=== PATIENT | male | born 1960 | race Caucasian/White ===

== ENCOUNTER 2020-01-30 09:18 | Inpatient (IN) ==
--- NOTE | 2020-01-04 13:54 | PAT Medication Instructions ---
Medication Instructions Date of Service January 04, 2020 Home Medications acetaminophen 1,500 mg PO 1200 fish oil-dha-epa 1 cap PO QAM ibuprofen 600 mg PO QAM ASK your surgeon for instructions ibuprofen 600 mg PO QAM STOP taking 2 weeks before surgery If surgery is within 2 weeks, stop taking as soon as possible. fish oil-dha-epa 1 cap PO QAM DO NOT take the morning of surgery acetaminophen 1,500 mg PO 1200 Other Notes If you have any questions please call us at [phone] or [phone] or [phone] or [phone]
--- OUTSIDE RECORDS SUMMARY | 2020-01-04 13:59 | External Medical Summary | Continuity of Care Document ---
:1960 Author Name Angelo Merritt Address Unavailable Unavailable , Care Team Providers Name Role Phone Non[facility] MJosé Antonio Unavailable [email or web address] NICHOLE Merritt, A Unavailable Unavailable Unavailable Unavailable Unavailable Problems Injury of foot, left (959.7) (S99.922A) Acute low back pain (724.2) (M54.5) Tick bite (919.4) (W57.XXXA) Sciatica, left side (724.3) (M54.32) Left lumbar radiculopathy (724.4) (M54.16) Foreign body on external eye, part unspe cified, unspecified eye, initial encounter (930.9) (T15.90XA) Allergies and Adverse Reactions No Known Drug Allergies (Allergy) Medications Medications not documented Procedures Procedures not documented Immunizations Immunizations not documented Family History Mother Family history of diabetes mellitus (V18.0) (Z83.3) Status: Active Social History - Smoking Status Never smoked tobacco Plan of Treatment Planned Observations Planned Goals not documented Results No Known Results Results not documented
--- NOTE | 2020-01-04 14:23 | Anesthesiology Consultation ---
Date of Service January 04, 2020 Assessment & Plan (1) Encounter for pre-operative examination: COVID Status: As of 01/03 assessment, patient denies travel to endemic area, known exposure/sick contacts, or symptoms of COVID19. Patient instructed that they and their household members must follow strict social distancing guidelines, wear a mask in public and avoid travel for 14 days prior to surgery. Preoperative COVID19 testing to be completed prior to surgery per surgeon's arr angements. Patient made aware to self-isolate as much as possible between COVID testing and surgery. Chart Review Chart Review: Acceptable Risk for Surgery and Patient seen in Pre Admission Testing Teaching & Discussion Instructed NPO after midnight before surgery, except medications with 15 cc of water. Medication instructions provided according to the PAT guidelines. History Surgery Operation Date: 01/30/20 13:55 Proposed Procedures p Left Total Knee Arthroplasty - Donnie Barajas MD Height/Weight Height: 5 ft 11 in Weight: 121.6 kg Allergies Allergy/AdvReac Type Severity Reaction Status Date / Time No Known Allergies Allergy Verified 01/03/20 16:10 Medications Home Medications Medication Instructions Recorded Confirmed Last Taken acetaminophen 1,500 mg PO 1200 01/03/20 01/03/20 Unknown fish oil-dha-epa 1 cap PO QAM 01/03/20 01/03/20 Unknown ibuprofen 600 mg PO QAM 01/03/20 01/03/20 Unknown Past Medical History Medical History Habitual snoring has not ever had a sleep study test done, no cpap Obesity Osteoarthritis Exercise / Class Metabolic Activity II 4-5 Yardwork/Stairs/Walk up hill (Can do stairs but slowly, limited by knee pain, denies chest pain but some SOB feels 2/2 knee pain) Past Family History Family History (Updated 01/03/20 @ 16:18 by Antonia King RN) Mother Family history of diabetes mellitus Other No family history of adverse response to anesthesia Past Surgical History Surgical History History of tonsillectomy History of tooth extraction under local Hx of vasectomy Past Anesthesia History No Hx of Anesthesia Complications and No Family Hx of Anesthesia Complications History of PONV No Hx of PONV and No Hx of Motion Sickness Social History Smoking Status: Never smoker tobacco type: smokeless tobacco Do You Dip or Chew Tobacco: Yes (1 can every 2 days) Hx Alcohol Use: Yes Alcohol type: beer alcohol intake frequency: a few times a week Hx Substance Use: No substance use type: does not use Review of Systems Pt denies any recent chest pain, shortness of breath, palpitations, cough, fever, URI, or uncontrolled acid reflux. Physical Exam Vital Signs BP: 137/78bpm P: 85bpm SPO2: 97% RA T: 98.2 F R: 16 Constitutional + obese ENMT Mouth: + poor dentition and + chipped teeth (many molars broken off at the root); no dental restorations and no loose teeth Thyromental Distance: > or= 3.5 Finger Breadths Mallampati Class: I Neck normal visual inspection; neck extension not limited Respiratory normal respiratory effort Auscultation: lungs clear to auscultation bilaterally Cardiovascular Rate/Rhythm: regular rate and regular rhythm Heart Sounds: no murmur Extremities: no edema Testing Laboratory Results 01/04/20 14:35 01/04/20 14:50 PT 10.3 Seconds (9.0-12.0) 01/04/20 14:35 INR 1.0 (0.9-1.1) 01/04/20 14:35 APTT 26.3 Seconds (21.0-31.0) 01/04/20 14:35 Hemoglobin A1c 5.4 % (4.5-5.6) 01/04/20 14:35 Urine Color Yellow 01/04/20 14:35 Urine Appearance Clear (Clear) 01/04/20 14:35 Urine pH 7.0 (4.5-7.5) 01/04/20 14:35 Ur Specific [place] 1.018 (1.000-1.030) 01/04/20 14:35 Urine Protein Negative (Negative) 01/04/20 14:35 Urine Glucose (UA) Negative (Negative) 01/04/20 14:35 Urine Ketones Negative (Negative) 01/04/20 14:35 Urine Nitrite Negative (Negative) 01/04/20 14:35 Ur Leukocyte Esterase Negative (Negative) 01/04/20 14:35 Blood Type AB Positive 01/04/20 14:35 Antibody Screen NEGATIVE 01/04/20 14:35 Electrocardiogram Date: 01/04/20 Findings: + NSR @ (79bpm) Chest X-Ray Date: 01/04/20 Findings: + NAD
--- NOTE | 2020-01-04 15:31 | XRay Report ---
XR chest Pre-admission PA/Lat HISTORY: Preop. COMPARISON: None. FINDINGS: The lungs are clear. Cardiac silhouette is normal in size. No pleural effusions. No pneumot horax. Symmetric nodular densities within the lung bases likely represent nipple shadows. IMPRESSION: No acute process. ACT 112: Negative or not required by law. Electronically signed by: Ricardo Reyez M.D. 01/04/2020 3:30 PM
[2020-01-04 15:47] LABS: Basophils # (auto) 0.03 K/uL (0-0.2); Basophils % (auto) 0.4 %; Eosinophils # (auto) 0.15 K/uL (0-0.5); Eosinophils % (auto) 1.8 %; Hematocrit (blood only) 44.2 % (42-52); Hemoglobin 14.2 g/dL (14.0-18.0); Immature Granulocytes # (auto) 0.03 K/uL (0.00-0.02); Immature Granulocytes % (auto) 0.4 %; Lymphocytes # (auto) 1.13 K/uL (1.2-3.4); Lymphocytes % (auto) 13.6 %; Mean Corpuscular Hemoglobin 31.1 pg (25-34); Mean Corpuscular Hgb Conc 32.1 g/dL (32-36); Mean Corpuscular Volume 96.7 fL (80-100); Mean Platelet Volume 9.1 fL (7.4-10.4); Monocytes # (auto) 0.47 K/uL (0.11-0.59); Monocytes % (auto) 5.7 %; Neutrophils # (auto) 6.48 K/uL (1.4-6.5); Neutrophils % (auto) 78.1 %; Platelet Count 298 K/uL (130-400); RDW Coefficient of Variation 13.2 % (11.5-14.5); RDW Standard Deviation 46.6 fL (36.4-46.3); Red Blood Count 4.57 M/uL (4.7-6.1); White Blood Count 8.29 K/uL (4.8-10.8)
[2020-01-04 15:52] LABS: Appearance Urine Clear (Clear); Bilirubin Urine Negative (Negative); Blood Urine Negative (Negative); Color Urine Yellow; Glucose Urine UA Negative (Negative); Ketones Urine Negative (Negative); Leukocyte Esterase Urine Negative (Negative); Nitrite Urine Negative (Negative); Protein Urine Negative (Negative); Specific Gravity Urine 1.018 (1.000-1.030); Urobilinogen Urine Negative (Negative)
[2020-01-04 15:57] LABS: Albumin Level 3.7 gm/dl (3.4-5.0); BUN Creatinine Ratio 20.7 (10-20); Calcium 9.1 mg/dl (8.5-10.1); Creatinine Clr Calc Pharmacy 93.9 ml/min; Est GFR (African American) 83.2; Est GFR (Non-African American) 71.8; Potassium 4.6 mmol/L (3.5-5.1)
[2020-01-04 16:02] LABS: Partial Thromboplastin Ratio 0.9; Partial Thromboplastin Time 26.3 Seconds (21.0-31.0); Prothrombin Time 10.3 Seconds (9.0-12.0)
[2020-01-05 06:42] LABS: Estimated Average Glucose 108 mg/dl; Hemoglobin A1C 5.4 % (4.5-5.6)
--- NOTE | 2020-01-06 04:49 | Electrocardiogram Report ---
Test Reason : Blood Pressure : / mmHG Vent. Rate : 079 BPM Atrial Rate : 079 BPM P-R Int : 154 ms QRS Dur : 110 ms QT Int : 394 ms P-R-T Axes : 036 068 035 degrees QTc Int : 451 ms Normal sinus rhythm Normal ECG No previous ECGs available Confirmed by Stephane Womack ([id number]) on 01/06/2020 4:49:30 AM Referred By: Donnie Barajas Confirmed By:Stephane Womack
--- NOTE | 2020-01-29 17:09 | History and Physical Report ---
DATE OF ADMISSION: 01/30/2020 CHIEF COMPLAINT: Chronic left knee pain. HISTORY OF PRESENT ILLNESS: This is a 59-year-old male patient of Dr. Barajas'faye complaining of chronic left knee pain, longstanding, now progressively getting worse. The patient has failed conservative treatment including anti-inflammatories, home exercise program and the use of a brace. The patient has been diagnosed with end-stage osteoarthritis per clinical and radiographic exams and wishes to proceed with a left total knee arthroplasty. PAST MEDICAL HISTORY: Sleep apnea, peripheral neuropathy, sciatica, obesity. SOCIAL HISTORY: Nonsmoker, occasional drinker. PAST SURGICAL HISTORY: Negative. FAMILY HISTORY: Noncontributory. REVIEW OF SYSTEMS: Chronic left knee pain, otherwise denies any shortness of breath, chest pain, nausea, vomiting or any other joint complaints. MEDICATIONS: 1. Fish oil [id number]-umzhjcj daily. 2. Ibuprofen ijlf-lym-unmmqhu daily. 3. Tylenol qypu-mut-smthhij daily as needed. PHYSICAL EXAMINATION: GENERAL: Well-developed, well-nourished 59-year-old male in no acute distress. He is alert and oriented x3 and pleasant. HEENT: Normocephalic, atraumatic. Extraocular motions are intact. Pupils are equal and reactive to light. HEART: Regular rate and rhythm, no murmurs. LUNGS: Clear. ABDOMEN: Soft, nontender, bowel sounds present. EXTREMITIES: Left lower extremity reveals a varus deformity with medial joint line tenderness, positive effusion. Range of motion of negative 10-100, 4/5 strength. Neurologically and neurovascularly intact in his left lower extremity. DIAGNOSES: Left knee end-stage osteoarthritis, sleep apnea, peripheral neuropathy, sciatica, obesity. PLAN: The patient was advised of his diagnosis. Indications, risks, benefits, postop course have all been reviewed. The patient wished to proceed with a left total knee arthroplasty. Necessary consent forms, preoperative testing and clearances will be obtained.
[~2020-01-30 09:18] MED LIST: ACETAMINOPHEN 500 MG TAB PO SCH; BUPIVACAINE 0.25% 30 ML VIAL ONE; BUPIVACAINE 0.5 % 5 MG/1 ML PF 10ML VIAL ONE; CEFAZOLIN 3000MG 72.5 ML IV SCH; CeleBREX 200 MG CAP PO SCH; FAMOTIDINE 20 MG TAB PO SCH; GABAPENTIN 600 MG DOSE PO SCH; LR 500ML BOLUS, THEN 15ML/HR IV SCH; METOCLOPRAMIDE HCL 10 MG TABLET PO SCH; ROPIVACAINE 0.5% HCL/PF 150 MG, BUPIVACAINE 0.5% MPF 30 ML, EPINEPHrine 30MG/30ML (OR U... INSTIL SCH; TRANEXAMIC ACID 1,000 MG **IV Intra-op IV SCH; TRANEXAMIC ACID 1,000 MG **IV Pre-op IV SCH; dexAMETHasone 4 MG TAB PO SCH
[2020-01-30] MEDS ORDERED: PROPOFOL IV EMULSION 10 MG/ML 20 ML VIAL IV ONE (11:36)
[2020-01-30] MEDS ORDERED: MIDAZOLAM HCL 1 MG/ML 2ML VIAL ONE ×2 (11:37→13:08)
--- NOTE | 2020-01-30 12:26 | History & Physical Bridge Note ---
Date of Service January 30, 2020 History & Physical Bridge Note I have examined the patient, reviewed the History & Physical and in the interval since the performance of the History & Physical I have noted the following changes of clinical significance: no changes noted
[2020-01-30] MEDS ORDERED: ORTHO JOINT ANESTHETIC ONE (12:33)
[2020-01-30] MEDS ORDERED: BACITRACIN INJ 50,000 UNIT VIAL ONE (12:33)
[2020-01-30] MEDS ORDERED: fentaNYL citrate 100 MCG/2 ML VIAL ONE ×2 (15:07→16:02)
--- NOTE | 2020-01-30 15:14 | Operative Report ---
"Post Operative Report Pre & Post Diagnosis Operation Date: 01/30/20 11:15 Pre-Op Diagnosis: Osteoarthritis, Left Knee, obesity BMI 37 Post-Op Diagnosis: Osteoarthritis, multiple loose bodies, chronic ACL tear, obesity BMI 37 left Knee I identified the patient and participated in the time-out.: Yes Procedure Operation Date: 01/30/20 11:15 Actual Procedures p Left Total Knee Arthroplasty(Left), removal of multiple loose bodies- Donnie Barajas MD Surgeon Donnie Barajas MD Sponge Buffer GRETA Aguilar Estimated Blood Loss 5 Findings Consistent with Post-Op Diagnosis Specimens 13 loose bodies and bone cuts Drains 2 Hemovac Anesthesia Type MAC Spinal Regional Complications none Disposition Accompanied Patient To Recovery: No Disposition: Recovery Room Indications 59-year-old male with severe bilateral knee osteoarthritis progressive over the years. He has severe bilateral knee osteoarthritis loose bodies in the popliteal fossa bone loss in the medial compartment with marked varus alignment of the knees left knee worse than right. There is subluxation of the femur on the tibia. Description of Procedure Patient taken to the operating room the anesthetized under spinal MAC regional anesthesia. Patient was placed supine on the operating table. A pneumatic tourniquet was placed about the left moderately obese upper thigh. The left lower extremity was prepped and draped in sterile fashion. Knee exam demonstrated marked varus alignment no pseudolaxity stretching out of the lateral collateral ligament due to subluxation 15 degree flexion contracture with flexion to 120 degrees. The leg was elevated exsanguinated with an Esmarch bandage and pneumatic tourniquet was raised to 350 millimeters of mercury. Skin incised sharply in longitudinal fashion. Subcutaneous flaps elevated. Incision was made through the medial retinaculum extending up in the mid third of the quadriceps tendon and down to the medial tibial tubercle. Intra-articular findings demonstrated severe tricompartmental DJD wree-df-iciz medial and lateral compartments with patellofemoral osteoarthritis tricompartmental osteophytes and multiple loose bodies in the popliteal fossa area.. The Traveler | VIPn total knee arthroplasty system was used. To expose the knee the infrapatellar fat pad was resected. The meniscal remnants and cruciate ligaments were resected. The anterior fat pad over the femur in the area of the anterior flange of the femoral component was resected. Lateral synovial bands release. The femur was exposed. An intramedullary drill hole was made into the canal. A guide hector was placed. Distal femoral cutting guide was adjusted to resect a 5 degree valgus cut with 10 millimeters distal femur resected. The knee was extended and a subperiosteal peel lateral release was performed around the patella. Patella width was measured and width was reproduced using a freehand cut technique and a 39 x 11 symmetrical patella component. The 3 drill holes were made and the excess lateral facet was beveled off to prevent any impingement. Attention was taken back to the femur which was exposed with retractors and the femoral sizing guide was pinned in position. The drill holes were placed in 3 of external rotation to match epicondylar axis. Femur sized for a 7 component. The 4-in-1 cutting block was placed and then the anterior posterior and chamfer cuts are made. The tibia was then subluxed. The external tibial cutting guide was just to make a perpendicular cut to the long axis of the tibia below the most deficient bone loss side. A lamina carbonating stone cleaner was used and the flexion extension gaps were balanced. All posterior osteophytes removed. All meniscal remnants were resected. The tibia exposed and the trial tibial component size 7 was externally rotated in line with the tibial tubercle and pinned in position. The punch and drill for cemented stem was used. The notch cutting device was centered appropriately and the femoral notch cut was made. The femoral trial was inserted. There was still relative tightness of the MCL compared to the LCL so we pie crusted the MCL to balance ligaments. We also did medial and posterior medial releases. Trial tibial inserts were placed and size 13 constrained TS gave balanced ligaments through flexion and extension. Patella tracking was assessed. The patella tracked centrally. The trial components were then removed and the orthomix anesthetic cocktail was injected per protocol. The knee was then copiously irrigated with pulsatile lavage antibiotic solution. Final components were then cemented with Simplex cement. Final components were triathlon posterior stabilized left size 7 femoral component, size 7 universal tibial baseplate with a 12 x 50 mm cemented stem, 13 mm TS tibial insert for size 7 tibia, and a S 39 x 11 patella. While the cement cured the Betadine soak was used per protocol. After cement cured further pulsatile lavage irrigation performed and 2 Hemovac drains were brought out laterally. The quadriceps tendon and medial retinaculum were closed with figure of 8 #1 Vicryl sutures. The knee was taken through full range of motion and the repair was secure. The subcutaneous tissues were closed with 2-0 Vicryl sutures. Skin was closed with anival. Sterile dressings were applied. Patient procedure well. GRETA Aguilar was my physician business banking sales assistant who assisted in patient positioning prepping and draping,leg positioning ,soft tissue retraction and instrument management and participated in the closing and will participate in postoperative care of the patient. The patient tolerated the procedure well. I attest to the content of the Intraoperative Record and any orders documented therein. Any exceptions are noted below."
[2020-01-30] MEDS ORDERED: ONDANSETRON INJ 2 MG/ML 2 ML VIAL ONE (15:33)
[2020-01-30] MEDS ORDERED: ATROPINE SULFATE 0.1 MG/ML 10ML SYR IV PRN (16:01)
[2020-01-30] MEDS ORDERED: ePHEDrine sulfate 50 MG/ML AMP IV PRN (16:01)
[2020-01-30] MEDS ORDERED: ONDANSETRON INJ 2 MG/ML 2 ML VIAL IV PRN ×2 (16:01→16:05)
[2020-01-30] MEDS ORDERED: HYDROmorphone INJ 2 MG/ML SYR/VIAL IV PRN (16:01)
[2020-01-30] MEDS: fentaNYL citrate 100 MCG/2 ML VIAL IV PRN ×2 (16:03→16:21)
[2020-01-30] MEDS ORDERED: HYDROmorphone INJ 0.5 MG/0.5 ML SYR IV PRN (16:05)
[2020-01-30] MEDS ORDERED: MAGNESIUM HYDROXIDE SUSP 30 ML UDC PO PRN (16:05)
[2020-01-30] MEDS ORDERED: bisacodyL 10 MG SUPP PR PRN (16:05)
[2020-01-30] MEDS ORDERED: NALOXONE HCL 0.4 MG/1 ML VIAL/CARP IV PRN (16:05)
--- NOTE | 2020-01-30 16:39 | XRay Report ---
XR knee LT 1 or 2V routine CLINICAL HISTORY: Surgical Post Op COMPARISON: None FINDINGS: Alignment of the constrained total left knee arthroplasty is anatomic. There is no peripro sthetic fracture or unexpected radiopaque foreign body. There are skin anival and drains. IMPRESSION: Expected findings following total left knee arthroplasty. ACT 112: Negative or not required by law. Electronically signed by: Torey Calderón M.D. 01/30/2020 4:38 PM
--- NOTE | 2020-01-30 16:51 | Anesthesiology Progress Note ---
Date of Service January 30, 2020 Anesthesia Post Procedure Vital Signs Vital Signs: Temp Pulse Pulse Resp BP Pulse Ox 01/30/20 16:40 81 20 134/83 94 01/30/20 16:30 73 12 150/88 H 95 01/30/20 16:20 77 12 163/94 H 94 01/30/20 16:10 82 12 167/94 H 95 01/30/20 16:00 84 12 150/95 H 98 01/30/20 15:54 36.7 C 87 13 153/98 H 98 01/30/20 09:52 36.6 C 96 H 20 148/82 H 96 Pain Intensity Right Leg: Pain Intensity: 5 Transfer of Care Handoff Completed per policy Notes Mental Status: alert / awake / arousable and participated in evaluation Nausea / Vomiting: adequately controlled Pain: adequately controlled Airway Patency, RR, SpO2: stable & adequate BP & HR: stable & adequate Hydration State: stable & adequate Neuraxial Anesthesia: was administered and sensory block is resolving Anesthetic Complications: no major complications apparent and Pt Satisfied with anesthetic care
[2020-01-30] MEDS: SODIUM CHLORIDE 0.9% 1000ML 1,000 ML IV SCH (17:44)
--- NOTE | 2020-01-30 19:34 | Hospitalist Progress Note ---
Date of Service January 30, 2020 Assessment & Plan (1) Osteoarthritis: s/p TKA doing well (2) Habitual snoring: outpt eval Admission and Anticipated Discharge Date Admission Date: January 30, 2020 Subjective asked to see for post op med management doing well - walking w nursing pain controlled no complaints Review of Systems Review of Systems: All systems reviewed & are unremarkable except as noted in HPI & below Physical Exam Physical Exam: aaox3 pleasant nad heent nc at mmm breathing unlabored no accessory muscles good effort skin no rashes no pallor or icteurs neuro no focal deficits walking w walker slow steady gait Results & Data Results & Data ([facility]) Vital Signs (Past 12 Hours) Vital Signs Temp Pulse Pulse Pulse Resp BP Pulse Ox 01/30/20 19:20 97.3 F L 86 18 127/74 96 01/30/20 18:19 97.3 F L 77 16 122/69 96 01/30/20 17:50 97.7 F 69 18 145/81 H 98 01/30/20 17:20 98.1 F 85 16 127/75 95 01/30/20 17:10 79 16 143/83 H 95 01/30/20 17:00 76 18 128/87 95 01/30/20 16:50 82 21 145/93 H 95 01/30/20 16:40 81 20 134/83 94 01/30/20 16:30 73 12 150/88 H 95 01/30/20 16:20 77 12 163/94 H 94 01/30/20 16:10 82 12 167/94 H 95 01/30/20 16:00 84 12 150/95 H 98 01/30/20 15:54 98.1 F 87 13 153/98 H 98 01/30/20 09:52 97.9 F 96 H 20 148/82 H 96 PG Care Time/CCT Total # of Minutes Spent Total Time Spent with Patient: Total time spent is greater than 50% in coordination of care (as documented) at patient's floor/unit and/or counseling patient: Coding Level of Care Code 53376 Subseq Hosp Care Lvl 1 Diagnoses Osteoarthritis M19.90 Habitual snoring R06.83
[2020-01-30] MEDS ORDERED: SENNA 8.6 MG TAB PO SCH (21:00)
[2020-01-30] MEDS: DOCUSATE SODIUM 100 MG CAP PO SCH (21:04)
[2020-01-30] MEDS: CeleBREX 200 MG CAP PO SCH (21:05)
[2020-01-30] MEDS: ACETAMINOPHEN 500 MG TAB PO SCH (21:05)
[2020-01-30] MEDS: CEFAZOLIN 2000MG 2,000 MG/15 ML SYR IV SCH (21:08)
[2020-01-31] MEDS: OXYCODONE HCL IR 5 MG TAB (IMMEDIATE RELEASE) PO PRN ×3 (01:59→16:31)
--- NOTE | 2020-01-31 02:29 | Operative Report (OR) ---
DATE OF OPERATION: 01/30/2020 ADDENDUM During the exposure, once the femoral and tibial cuts were prepared, we used a lamina talent coordinator to clear out the meniscal remnants posteriorly and resect the remainder of the PCL. The ACL was noted to be absent. The patient had a chronic ACL tear. In the mid popliteal area just posterior to the PCL, there was a popliteal cyst filled with multiple loose bodies. Thirteen loose bodies were removed from this area ranging in size from 2 cm to 6 mm in size proximally. I attest to the content of the Intraoperative Record and any orders documented therein. Any exception s are noted below.
[2020-01-31] MEDS: SODIUM CHLORIDE 0.9% 1000ML 1,000 ML IV SCH (03:39)
[2020-01-31] MEDS: CEFAZOLIN 2000MG 2,000 MG/15 ML SYR IV SCH (05:20)
[2020-01-31] MEDS: ACETAMINOPHEN 500 MG TAB PO SCH ×2 (05:20→14:23)
[2020-01-31 06:14] VITALS: TEMP 97.7
[2020-01-31 06:37] LABS: Hematocrit (blood only) 37.6 % (42-52); Hemoglobin 12.5 g/dL (14.0-18.0); Mean Corpuscular Hemoglobin 31.7 pg (25-34); Mean Corpuscular Hgb Conc 33.2 g/dL (32-36); Mean Corpuscular Volume 95.4 fL (80-100); Mean Platelet Volume 8.8 fL (7.4-10.4); Platelet Count 265 K/uL (130-400); RDW Coefficient of Variation 12.9 % (11.5-14.5); RDW Standard Deviation 45.4 fL (36.4-46.3); Red Blood Count 3.94 M/uL (4.7-6.1); White Blood Count 11.08 K/uL (4.8-10.8)
[2020-01-31 07:08] LABS: BUN Creatinine Ratio 18.3 (10-20); Calcium 8.6 mg/dl (8.5-10.1); Creatinine Clr Calc Pharmacy 111.7 ml/min; Est GFR (African American) 101.7; Est GFR (Non-African American) 87.8; Potassium 4.7 mmol/L (3.5-5.1)
[2020-01-31 07:23] VITALS: BP 124/78; O2SAT 94
--- NOTE | 2020-01-31 08:25 | Anesthesiology Progress Note ---
Date of Service January 31, 2020 Anesthesia Post Procedure Vital Signs Vital Signs: Temp Pulse Pulse Pulse Resp BP Pulse Ox 01/31/20 07:00 36.5 C 71 16 124/78 94 01/31/20 04:30 36.5 C 70 20 133/79 98 01/30/20 23:25 36.9 C 84 18 128/73 94 01/30/20 20:20 36.4 C L 83 16 127/73 92 01/30/20 19:20 36.3 C L 86 18 127/74 96 01/30/20 18:19 36.3 C L 77 16 122/69 96 01/30/20 17:50 36.5 C 69 18 145/81 H 98 01/30/20 17:20 36.7 C 85 16 127/75 95 01/30/20 17:10 79 16 143/83 H 95 01/30/20 17:00 76 18 128/87 95 01/30/20 16:50 82 21 145/93 H 95 01/30/20 16:40 81 20 134/83 94 01/30/20 16:30 73 12 150/88 H 95 01/30/20 16:20 77 12 163/94 H 94 01/30/20 16:10 82 12 167/94 H 95 01/30/20 16:00 84 12 150/95 H 98 01/30/20 15:54 36.7 C 87 13 153/98 H 98 01/30/20 09:52 36.6 C 96 H 20 148/82 H 96 Pain Intensity Right Leg: Pain Intensity: 5 Notes Mental Status: alert / awake / arousable and participated in evaluation Patient Amnestic to Procedure: Yes Nausea / Vomiting: adequately controlled Pain: adequately controlled Airway Patency, RR, SpO2: stable & adequate BP & HR: stable & adequate Hydration State: stable & adequate Neuraxial Anesthesia: was administered and sensory block resolved Anesthetic Complications: no major complications apparent and Pt Satisfied with anesthetic care
[2020-01-31] MEDS: CeleBREX 200 MG CAP PO SCH (08:42)
[2020-01-31] MEDS: DOCUSATE SODIUM 100 MG CAP PO SCH (08:42)
[2020-01-31] MEDS ORDERED: RIVAROXABAN 10 MG TABLET PO SCH (09:00)
[2020-01-31] MEDS ORDERED: MULTIVITAMIN TAB PO SCH (09:00)
--- NOTE | 2020-01-31 11:33 | Orthopedic Progress Note ---
Date of Service January 31, 2020 Assessment & Plan (1) Status post left knee replacement: Admission and Anticipated Discharge Date Admission Date: 59 yo male stable POD #1 s/p left TKA 1. Med management 2. DVT prophylaxis- Xarelto, SCDs 3. PT/OT 4. D/C planning- home w/ OPPT Supervising Physician Co-Signing Physician Notes Patient seen and examined. Doing very well. Minimal pain. Mobilizing well. Drain just removed. Ready for discharge home. Subjective Pt resting in bed, pain controlled, denies complaints Physical Exam Physical Exam: Toes mobile, N/V/I, dressing and drain in place Results & Data ([facility]) Vital Signs (Past 12 Hours) Vital Signs Temp Pulse Resp BP Pulse Ox 01/31/20 07:00 36.5 C 71 16 124/78 94 01/31/20 04:30 36.5 C 70 20 133/79 98 Laboratory Results 01/31/20 01/31/20 01/30/20 Range/Units 05:44 05:44 09:38 WBC 11.08 H (4.8-10.8) K/uL RBC 3.94 L (4.7-6.1) M/uL Hgb 12.5 L (14.0-18.0) g/dL Hct 37.6 L (42-52) % MCV 95.4 (80-100) fL MCH 31.7 (25-34) pg MCHC 33.2 (32-36) g/dL RDW Std Deviation 45.4 (36.4-46.3) fL RDW Coeff of Priti 12.9 (11.5-14.5) % Plt Count 265 (130-400) K/uL MPV 8.8 (7.4-10.4) fL Sodium 140 (136-145) mmol/L Potassium 4.7 (3.5-5.1) mmol/L Chloride 109 H (98-107) mmol/L Carbon Dioxide 28 (21-32) mmol/L Anion Gap 3.0 (3-11) BUN 17 (7-18) mg/dl Creatinine 0.94 (0.6-1.4) mg/dl Est Cr Clr Drug Dosing 111.7 ml/min Est GFR ( Amer) 101.7 Est GFR (Non-Af Amer) 87.8 BUN/Creatinine Ratio 18.3 (10-20) Glucose 115 H (70-99) mg/dl Calcium 8.6 (8.5-10.1) mg/dl Hepatitis C Ab Screen Neg (Neg) Blood Type Antibody Screen Crossmatch 01/30/20 Range/Units 09:38 WBC (4.8-10.8) K/uL RBC (4.7-6.1) M/uL Hgb (14.0-18.0) g/dL Hct (42-52) % MCV (80-100) fL MCH (25-34) pg MCHC (32-36) g/dL RDW Std Deviation (36.4-46.3) fL RDW Coeff of Priti (11.5-14.5) % Plt Count (130-400) K/uL MPV (7.4-10.4) fL Sodium (136-145) mmol/L Potassium (3.5-5.1) mmol/L Chloride (98-107) mmol/L Carbon Dioxide (21-32) mmol/L Anion Gap (3-11) BUN (7-18) mg/dl Creatinine (0.6-1.4) mg/dl Est Cr Clr Drug Dosing ml/min Est GFR ( Amer) Est GFR (Non-Af Amer) BUN/Creatinine Ratio (10-20) Glucose (70-99) mg/dl Calcium (8.5-10.1) mg/dl Hepatitis C Ab Screen (Neg) Blood Type AB Positive Antibody Screen NEGATIVE Crossmatch See Detail
[2020-01-31 14:54] VITALS: PULSE 79
== END 2020-01-31 17:50 | disposition home or self-care (01) | DRG 470 ==
LOC: ASU 09:18 → 3E 09:18 → OBSVTOIN 15:51